=== PATIENT | female | born 2000 | race Caucasian/White ===

== ENCOUNTER 2025-01-22 17:58 | Emergency (ER) | payer OTHER, SELFPAY ==
[2025-01-22] VITALS (11 sets, daily range): BP systolic 93–118; BP diastolic 50–78; PULSE 75–87; RESP 10–20; TEMP 36.4; O2SAT 99–100
--- NOTE | ~2025-01-22 | US_ITS ---
EXAMINATION: US OB <= 14 weeks fetus DATE: 01/22/2025 20:17 INDICATION: Abdominal pain. Vaginal bleeding. TECHNIQUE: Real-time transabdominal obstetric ultrasound. FINDINGS: No prior studies for comparison. The uterus measures 10.9 x 7 x 9.1 cm. There is an intrauterine gestational sac, with pole identified. The crown rump length measures 1.98 cm, which correlates with a estimated gestational age of 8 weeks 4 days. heart tones are identified measuring 181 bpm. There is a large subchorionic hemorrhage. Ovaries within normal limits. IMPRESSION: 1. SL IUP with an EGA of 8 weeks, 4 days (EDC by current ultrasound of 08/30/2025). 2: Large subchorionic hemorrhage. Reviewed, dictated and finalized at location O. IMPRESSION: 1. SL IUP with an EGA of 8 weeks, 4 days (EDC by current ultrasound of 08/31/19). 2: Large subchorionic hemorrhage.
--- OUTSIDE RECORDS SUMMARY | 2025-01-22 18:00 | XMS_ITS | Encounter Summary ---
Author Organization [facility] Facility Care Team Providers Care Multiple Sclerosis Nurse Name Role Phone Gurjit Anderson MD Primary Care Provider [phone] Juan Dooley MD Unavailable [phone] Encounter Details Date Type Department Care Team (Latest Contact Info) Description 02/17/2024 Hospital Encounter Social History Tobacco Use Types Packs/Day Years Used Date Smoking Tobacco: Never Smokeless Tobacco: Never Alcohol Use Standard Drinks/Week Comments Not Currently 0 (1 standard drink = 0.6 oz pur e alcohol) AUDIT-C Answer Date Recorded Q1: How often do you have a drink containing alc ohol? Never 06/19/2021 Average Number of Drinks Not on file 022 Frequency of Binge Drinking Not on file 06/01 Personal Safety Answer Date Recorded Have you ever been in or are you currently in a harmful physical or emotional relationship or is someone making you feel afraid or unsafe? Denies 01/01/2025 Comments Unknown Sex and Gender Information Value Date Recorded Sex Assigned at Not on file Legal Sex Female 7:16 PM [employer] Gender Identity Not on file Sexual Orientation Not on file documented as of this encounter Plan of Treatment Not on file documented as of this encounter Visit Diagnoses Not on filedocumented in this encounter Care Teams Multiple Sclerosis Nurse Relationship Specialty Start Date End Date Gurjit Anderson MD [address] [place] [id number] PCP - General Family Medicine 08/21/23 Juan Dooley MD [address] [facility] [place] [id number] Cemetery Worker Obstetrics and Gynecology 08/21/23 documented as of this encounter
--- OUTSIDE RECORDS SUMMARY | 2025-01-22 18:00 | XMS_ITS | Clinical Summary ---
Author Organization [facility] Address [address] [place] [id number] Care Team Providers Care Utility Technician Name Role Phone Gurjit Anderson MD Primary Care Provider [phone] Allergies No known active allergies Medications oxyCODONE immediate release (ROXICODONE) 5 MG immediate release tabletIndication s:Acute Pain < 7 Day Supply Take 1 tablet (5 mg total) by mouth every 6 (six) hours as needed for Pain. Indications : Acute Pain < 7 Day Supply 10 tablet 02/18/2024 Active Active Problems Problem Noted Date Diagnosed Date Acute appendicitis 02/18/2024 Appendicitis 02/18/2024 Social History Tobacco Use Types Packs/Day Years Used Date Smoking Tobacco: Former Cigarettes Passive Smoke Exposure: Never Smokeless Tobacco: Never Tobacco Cessation:Counseling Given: No Alcohol Use Standard Drinks/Week Comments Not Currently 0 (1 standard drink = 0.6 oz pur e alcohol) B1300 Health Literacy Answer Date Recor ded How often do you need to hav e someone help you when you read instructions, pamphlets, or other written material from your doctor or pharmacy? Rarely 02/18/2024 [facility] Utilities Answer Date Recorded In the past 12 months has e [employer], [employer], or water [employer] threatened to shut off services in your home? No 02/18/2024 Humiliation, Afraid, Rape, and Kick questionnair e Answer Date Recorded Within the last year, have y ou been afraid of your partner or ex-partner? No 02/18/2024 Within the last year, have y ou been humiliated or emotionally abused in other ways by your partner or ex-partner? No Within the last year, have y ou been kicked, hit, slapped, or otherwise physically hurt by your partner or ex-partner? No 02/18/2024 Within the last year, have y ou been raped or forced to have any kind of sexual activity by your partner or ex-partner? No 02/18/2024 Social Connection and Isolat ion Panel [NHANES] Answer Date Recorded In a typical week, how many times do you talk on the phone with family, friends, or neighbors? More than three times a week 02/18/2024 How often do you get togethe r with friends or relatives? Once a week 02/18/2024 How often do you attend chur or congregation services? 1 to 4 times per year 02/18/2024 Do you belong to any clubs o r organizations such as moravian groups, unions, fraternal or athletic groups, or school groups? No 02/18/2024 How often do you attend meet ings of the clubs or organizations you belong to? 1 to 4 times per year 02/18/2024 Are you , , di vorced, , never , or living with a partner? Living with partner 02/18/2024 AUDIT-C Answer Date Recorded Q1: How often do you have a drink containing alc ohol? Monthly or less 02/18/2024 Q2: How many drinks containi ng alcohol do you have on a typical day when you are drinking? 1 or 2 02/18/2024 Q3: How often do you have si x or more drinks on one occasion? Never 02/18/2024 Overall Financial Resource Strain (CARDIA) Answe r Date Recorded How hard is it for you to pa y for the very basics like food, housing, medical care, and heating? Not very hard 02/18/2024 [facility] - Occupational Stress Questionnaire Answer Date Recorded Do you feel stress - tense, restless, nervous, or anxious, or unable to sleep at night because your mind is troubled all the time - these days? To some extent 02/18/2024 Exercise Vital Sign Answer Date Recorde d On average, how many days pe r week do you engage in moderate to strenuous exercise (like a brisk walk)? 7 days 02/18/2024 On average, how many minutes do you engage in exercise at this level? 60 min 02/18/2024 Hunger Vital Sign Answer Date Recorded Within the past 12 months, y ou worried that your food would run out before you got the money to buy more. Never true 02/18/20 24 Within the past 12 months, t he food you bought just didn't last and you didn't have money to get more. Never true 02/18/2024 PRAPARE - Transportation Answer Date Re corded In the past 12 months, has l ack of transportation kept you from medical appointments or from getting medications? No 01/30 In the past 12 months, has l ack of transportation kept you from meetings, work, or from getting things needed for daily living? No 02/18/2024 Housing Stability Vital Sign Answer Chacho e Recorded In the last 12 months, was t here a time when you were not able to pay the mortgage or rent on time? No 02/18/2024 In the past 12 months, how m any times have you moved where you were living? 3 02/18/2024 At any time in the past 12 m [facility], were you homeless or living in a [facility] (including now)? No 02/18/2024 Comments Unknown Sex and Gender Information Value Date Recorded Sex Assigned at Not on file Legal Sex Female 9:25 PM CDT Gender Identity Not on file Sexual Orientation Not on file Last Filed Vital Signs Vital Sign Reading Time Taken Comments Blood Pressure 106/64 02/18/2024 1:30 PM CDT Pulse 85 02/18/2024 1:30 PM CDT Temperature 36.2 C (97.2 F) 02/18/2024 10:40 AM CDT Respiratory Rate 16 02/18/2024 11:3 0 AM CDT Oxygen Saturation 100% 02/18/2024 1:30 PM CDT Inhaled Oxygen Concentration - - Weight 53.5 kg (117 lb 15.1 oz) 02/18/2024 1:00 AM CDT Height 170 cm (5' 6.93) 02/18/2024 1:00 AM CDT Body Mass Index 18.51 02/18/2024 1:00 AM CDT Plan of Treatment Health Maintenance Due Date Last Done Comments Cervical Cancer Screening Pap Smear (Age 21 to 29) Every 3 Years 2001 Cervical Cancer Screening 2001 Annual Physical 2004 Chlamydia Screening Females ages 16-24 2017 Meningococcal B Vaccine (1 of 2 - Standard) 2017 Hepatitis C 10/16/2019 COVID-19 Vaccine ( - 2023-25 season) 2024 DTaP, Tdap and Td Vaccines (8 - Td or Tdap) 06/08/2029 06/08/2019, 02/12/2013, 12/09/2005, Additional history exists Pneumococcal Vaccine: Pediatrics (0 to 5 Years) and At-Risk Patients (6 to 49 Years) Aged Out 2001 No longer eligible based on patient's age to complete this topic Hepatitis B Vaccines Completed 08/08/2002, 04/18/2002, 2001 HPV Vaccines Completed 06/01/2017, 02/12/2013 Meningococcal Vaccine Aged Out No jesse mendez eligible based on patient's age to complete this topic RSV Immunizations Under 20 Months Aged Out No longer eligible based on patient's age to complete this topic Insurance Advance Directives * Full Code (Latest Code Status on File) Date Activated Date Inactivated Comments 02/18/2024 2:30 AM 02/18/2024 6:15 PM Care Teams Utility Technician Relationship Specialty Start Date End Date Gurjit Anderson MD [address] [place] [id number] PCP - General FAMILY PRACTICE 02/18/24
--- OUTSIDE RECORDS SUMMARY | 2025-01-22 18:00 | XMS_ITS | Clinical Summary ---
Author Organization [facility] [address] Address [address] [place] [address] Phone Care Team Providers Care Environmental Studies Faculty Member Name Role Phone Gurjit Anderson MD Primary Care Provider [phone] Juan Dooley MD Unavailable [phone] Allergies No known active allergies Medications 28 mg iron- 800 mcg tablet TK 1 T PO ONCE D 8 10/24/2018 Active ferrous gluconate 324 mg (37.5 mg of elemental iron) tablet Take 324 mg by mouth daily Active Active Problems No known active problems Encounters Date Type Department Care Team Description 01/01/2025 9:19 PM CDT - 01/01/2025 9:49 PM CDT Emergency [facility] Emergency Department [address] [place] [id number] Threatened miscarriage in early (Primary Dx) Discharge Disposition: Discharge to home or self care from Last 3 Months Immunizations Immunization Administration Dates Next Due Influenza, Quadrivalent, Spl it, Preservative Free, Intramuscular 06/10/2019 Tdap 06/08/2019 Medical History Medical History Date Comments Chronic kidney disease kidney fa ilure at 15weeks previous Thyroid disease Autoimmune disease Social History Tobacco Use Types Packs/Day Years [...] on file 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 Gender Identity Not on file Sexual Orientation Not on file Obstetrics History Para Term AB IAB SAB Ectopic Multiple Livin g Live Births 2 1 1 1 1 Date Outcome GA Total Labor Labor//3rd Weight Sex Type Anes PTL Steffi A1 A5 Name Clin 020 Term 39w 1d Vag-S pont Epidur al N Livin g Juan Rome MD Complications:None Delivery Location:This [facility] ity Last Filed Vital Signs Vital Sign Reading Time Taken Comments Blood Pressure 117/62 01/01/2025 7:41 PM CDT Pulse 87 01/01/2025 7:41 PM CDT Temperature 37.7 C (99.8 F) 01/01/2025 3:42 PM CDT Respiratory Rate 12 01/01/2025 7:41 PM CDT Oxygen Saturation 100% 01/01/2025 7:41 PM CDT Inhaled Oxygen Concentration - - Weight 51.7 kg (114 lb) 01/01/2025 3:42 PM CDT Height 170.2 cm (5' 7) 05/07/2019 4:45 PM CYBER INTELLIGENCE ANALYST Body Mass Index - - Plan of Treatment Health Maintenance Due Date Last Done Comments Cervical Cancer Screening 2001 Chlamydia and Gonorrhea (GC/CT) Screening 2001 Depression Screening 2001 Hepatitis C Screening 2001 Meningococcal B Vaccine (1 of 2 - Standard) 2017 Regular Well Visit/Exam 18-64 10/16/2019 Influenza Vaccine (#1) 2024 0, 06/01/2017, 03/25/2014 DTaP/Tdap/Td Vaccine (8 - Td or Tdap) 06/08/2029 06/08/2019, 02/12/2013, 12/09/2005, Additional history exists Pneumococcal vaccine <65 Aged Out 2001 No longer eligible based on patient's age to complete this topic Hepatitis B Screening Completed 08/08/2002 , 04/18/2002, 2001 Varicella Vaccines Completed 02/16/2016, 02/09/2004 HPV Vaccines Completed 06/01/2017, 02/12/2013 Procedures Procedure Name Priority Date/Time Associated Diagnosis Comments URINE CULTURE STAT 01/01/2025 8:55 PM CDT URINALYSIS, MICROSCOPIC ONLY STAT 01/01/2025 8:22 PM CDT URINALYSIS AND REFLEX TO MICROSCOPIC AND CULTURE STAT 01/01/2025 8:22 PM CDT US OB UNDER 14 WEEKS ED 01/01/2025 6:12 PM CDT EGFR STAT 01/01/2025 3:49 PM CDT DIFFERENTIAL AUTO STAT 01/01/2025 3:4 9 PM CDT ABO/RH Routine 01/01/2025 3:49 PM CDT HCG, BLOOD, QUANTITATIVE STAT 01/01/2025 3:49 PM CDT CBC WITH AUTO DIFFERENTIAL STAT 01/01/2025 3:49 PM CDT COMPREHENSIVE METABOLIC PANEL STAT 01/01/2025 3:49 PM CDT from Last 3 Months Results * Urine culture Urine, bladder (01/01/2025 8:55 PM CDT) Report Final Report: Less than 100,000 colonies/mL (clinically insignificant growth based on current clinical standards) Comment:Testing performed by : [facility], [address], [place]., [address] Organism (CLINICALLY INSIGNIFICANT GROWTH LARRY CON[facility] (KIM) Urine, bladder 01/01/2025 8: 55 PM CDT 01/02/2025 12:30 AM CDT Narrative [facility] (KIM) - 01/03/2025 6:17 AM CDT Indications for Culture:-> patient Testing performed by [facility] ([phone]) us Heaven [facility] MICRO[facility]OLOG[facility] - GENERA L ORDERABLES Final Result [facility] (KIM) 1 [facility] [place] [address] * (ABNORMAL) Urinalysis reflex to microscopic and culture Urine (01/01/2025 8:22 PM CDT) Color, ur Straw Yellow Clarity, ur Turbid(A) Clear [facility] (KIM) Specific gravity, ur 1.001(L) 1.003 - 1.030 [facility] ([place]IM) pH, urine 7.5 [facility] (KIM) Comment: Interpretive Data U rine pH is affected by diet, medications, systemic acid-base disturbances, and renal tubular function. pH may affect urinary stone formation. For example, urine pH below 6.0 may help reduce the tendency for calcium phosphate stones and pH greater than 6.0 may reduce the tendency for uric acid stone formation. Source: [facility] [employer] Current Interpretive Data was last revised on 2017 Protein, ur ql Negative Negative [facility] (KIM) Glucose, ur ql Negative Negative [facility] ([place]) Ketones, ur Negative Negative [facility] (KIM) Bilirubin, ur Negative Negative [facility] ([place]) Blood, ur 3+(A) Negative [facility] ([place]) Urobilinogen, ur <2.0 <2.0 mg/dL [facility] ([place]) Nitrite, ur Negative Negative [facility] (KIM) Leukocyte esterase, ur Negative Negative [facility] ([place]IM) UA reflex comment Reflex to microscopic UA will be performed. [facility] ([place]IM) Urine 01/01/2025 8:22 PM CDT 01/01/2025 8:51 PM CDT Agustín [facility] MICRO[facility] - GENERAL ORDERABLES Final Result Performing Organization Address [facility] Co de Phone Number LARRY [facility] (KIM) 1 [facility] [place] [address] * (ABNORMAL) Urinalysis, microscopic only (01/01/2025 8:22 PM CDT) WBC, ur 0-5 0 - 5 /HPF RBC, ur 0-2 0 - 2 /HPF [facility] ([place]) Epithelial cells, squamous, ur 1-5 0 - 5 /HPF [facility] ([place]) Bacteria, ur 3+(A) [facility] ([place]) Culture Reflex Comment Reflex conditions for urine culture (WBC >10) not met. [facility] ([place]) Urine 01/01/2025 8:22 PM CDT 01/01/2025 8:51 PM CDT [facility] URINE ORDERA BLES Final Result Performing Organization Address [facility] de Phone Number LARRY [facility] ([place]) [address] [facility] [place] [address] * US Ob Under 14 Weeks (01/01/2025 6:12 PM CDT) Anatomical Region Laterality Modality Abdomen N/A Ultrasound 01/01/2025 6:35 PM CDT Narrative 01/01/2025 6:39 PM CDT EXAM DESCRIPTION: US OB UNDER 14 WEEKS REASON FOR STUDY: vaginal pain / bleeding . Beta-hC TECHNIQUE: Transabdominal and transvaginal images acquired of the pelvis. COMPARISON: None FINDINGS: Clinical gestational age: Uncertain Clinical estimated Due Date: Not applicable Intrauterine gestational sac: Suspected intrauterine gestational sac measuring 1.0 x 0.4 cm. Yolk sac: Not identified Subchorionic bleed: No Placenta: Not identified Mean sac diameter: 0.9 cm Chilcoot-Vinton-rump length: Not applicable heart rate: Not applicable Gestational age by this ultrasound: 5 weeks 5 days ELODIA by this ultrasound: 08/29/2025 Uterus: The uterus is anteverted , measuring cm. Right Ovary/Adnexa: The right ovary measures 1.9 x 3.4 x 2.2 cm. There is documentation of color Doppler flow in the right ovary. The right ovary appears unremarkable. No adnexal mass. Left Ovary/Adnexa: The left ovary measures 4.6 x 1.9 x 2.6 cm. There is documentation of color Doppler flow in the left ovary. The left ovary appears unremarkable. There is a left ovarian 2.2 x 1.6 cm corpus luteal cyst. Free Fluid: None. Other Findings: The cervix measures 2.3 cm in length. IMPRESSION: 1. Suspected intrauterine gestational sac, gestational age of 5 weeks 5 days by this ultrasound. No pole identified. 2. Left ovarian corpus luteal cyst. THIS IS AN ELECTRONICALLY VERIFIED FINAL REPORT 01/01/2025 6:39 PM - Electronically signed by Denny Choe M.D. KR: KR Report ID: [id number] Reading Location: [id number] Procedure Note Denny Choe MD - 01/01/2025 EXAM DESCRIPTION: US OB UNDER 14 WEEKS REASON FOR STUDY: vaginal pain / bleeding . Beta-hC TECHNIQUE: Transabdominal and transvaginal images acquired of thepelvis. COMPARISON: None FINDINGS: Clinical gestational age: Uncertain Clinical estimated Due Date: Not applicable Intrauterine gestational sac: Suspected intrauterine gestational sac measuring 1.0 x 0.4 cm. Yolk sac: Not identified Subchorionic bleed: No Placenta: Not identified Mean sac diameter: 0.9 cm [place]ilcoot-Vinton-rump length: Not applicable heart rate: Not applicable Gestational age by this ultrasound: 5 weeks 5 days ELODIA by this ultrasound: 08/29/2025 Uterus: The uterus is anteverted , measuring cm. Right Ovary/Adnexa: The right ovary measures 1.9 x 3.4 x 2.2 cm. Thereis documentation of color Doppler flow in the right ovary. The right ovary appears unremarkable. No adnexal mass. Left Ovary/Adnexa: The left ovary measures 4.6 x 1.9 x 2.6 cm. There is documentation of color Doppler flow in the left ovary. The left ovaryappears unremarkable. There is a left ovarian 2.2 x 1.6 cm corpus luteal cyst. Free Fluid: None. Other Findings: The cervix measures 2.3 cm in length. IMPRESSION: 1. Suspected intrauterine gestational sac, gestational age of 5 weeks 5days by this ultrasound. No pole identified. 2. Left ovarian corpus luteal cyst. THIS IS AN ELECTRONICALLY VERIFIED FINAL REPORT 01/01/2025 6:39 PM - Electronically signed by Denny Choe M.D. KR: KR Report ID: [id number] Reading Location: [id number] us Agustín [facility] OB US PROCED URES Final Result * eGFR (01/01/2025 3:49 PM CDT) eGFR >90 >=60 mL/min/1. 73 m2 Comment: Interpretive Data Reference Interval Normal >/= 90 mL/min/1.73m2 Mildly decreased* 60 - 89 mL/min/1.73m2 Mildly to moderately decreased 45 - 59 mL/min/1.73m2 Moderately to severely decreased 30 - 44 mL/min/1.73m2 Severely decreased 15 - 29 mL/min/1.73m2 Kidney Failure < 15 mL/min/1.73m2 *Relative to young adult level Estimated glomerular filtration rate is determined by the 2020 CKD-EPI equation recommended by the National Kidney Foundation (A Unifying Approach to GFR Estimation: Recommendations of the NKF-ASK Task Force on Reassessing the Inclusion of Race in Diagnosing Kidney Disease, JASN 202). The CKD-EPI equation should not be used for patients with unstable renal function and has not been validated in children and those over 70. Current interpretive data was last reviewed 2021. Blood 01/01/2025 3:49 PM CDT 01/01/2025 4:11 PM CDT us Agustín [facility] BLOOD ORDERA BLES Final Result LARRY CON[facility] ([place]) 1 [facility] Department [place] [address] * Differential, auto (01/01/2025 3:49 PM CDT) Neutrophil abs 4.62 1.50 - 6.50 K/cumm Imm gran abs 0.02 0.00 - 0.10 K/cumm [facility] ([place]) Lymphocyte abs 1.15 0.80 - 3.30 K/cumm [facility] ([place]) Monocyte abs 0.31 0.20 - 0.80 K/cumm [facility] ([place]) Eosinophil abs 0.01 0.00 - 0.50 K/cumm [facility] ([place]) Basophil abs 0.04 0.00 - 0.10 K/cumm [facility] ([place]) Neutrophil pct 75.1 % [facility] ([place]) Comment: Interpretive Data Percent cell count reference ranges are not reported, since discordance with absolute values may lead to misinterpretation of CBC data. Current Interpretive Data was last revised on 2017. Imm gran pct 0.3 % [facility] ([place]) Comment: Interpretive Data Percent cell count reference ranges are not reported, since discordance with absolute values may lead to misinterpretation of CBC data. Current Interpretive Data was last revised on 2017. Lymphocyte pct 18.7 % [facility] ([place]) Comment: Interpretive Data Percent cell count reference ranges are not reported, since discordance with absolute values may lead to misinterpretation of CBC data. Current Interpretive Data was last revised on 2017. Monocyte pct 5.0 % [facility] ([place]) Comment: Interpretive Data Percent cell count reference ranges are not reported, since discordance with absolute values may lead to misinterpretation of CBC data. Current Interpretive Data was last revised on 2017. Eosinophil pct 0.2 % [facility] ([place]) Comment: Interpretive Data Percent cell count reference ranges are not reported, since discordance with absolute values may lead to misinterpretation of CBC data. Current Interpretive Data was last revised on 2017. Basophil pct 0.7 % [facility] ([place]IM) Comment: Interpretive Data Percent cell count reference ranges are not reported, since discordance with absolute values may lead to misinterpretation of CBC data. Current Interpretive Data was last revised on 2017. Blood 01/01/2025 3:49 PM CDT 01/01/2025 4:11 PM CDT Agustín [facility] BLOOD ORDERA BLES Final Result [facility] ([place]IM) [address] [facility] [place] [address] * CBC with auto differential (01/01/2025 3:49 PM CDT) WBC 6.15 3.80 - 9.90 K/cumm Hgb 12.4 11.9 - 15.5 g/dL [facility] ([place]) Hct 36.0 35.6 - 45.5 % [facility] ([place]) Plt 211 150 - 400 K/cumm [facility] ([place]) MPV 9.5 9.1 - 12.3 fL [facility] ([place]) RBC 3.99 3.90 - 5.20 M/cumm [facility] ([place]) MCV 90.2 81.3 - 96.4 fL [facility] ([place]) MCH 31.1 27.1 - 33.3 pg [facility] ([place]) MCHC 34.4 32.3 - 35.7 g/dL [facility] ([place]) RDW CV 11.7 11.1 - 14.9 % [facility] ([place]) RDW SD 38.5 35.7 - 48.1 fL [facility] ([place]) NRBC abs 0.00 0.00 - 0.01 K/cumm [facility] ([place]) Blood 01/01/2025 3:49 PM CDT 01/01/2025 4:11 PM CDT Agustín [facility] BLOOD ORDERA BLES Final Result LARRY [facility] (KIM) [address] [facility] [place] [address] * ABO/Rh (01/01/2025 3:49 PM CDT) ABO/Rh O Positive Blood 01/01/2025 3:49 PM CDT 01/01/2025 4:10 PM CDT Augstín [facility] BLOOD BANK T EST ORDERABLES Final Result Performing Organization Address [facility] Co de Phone Number LARRY [facility] ([place]) 1 [facility] [place] [address] * (ABNORMAL) hCG, blood, quantitative (01/01/2025 3:49 PM CDT) Pathologist [facility] hCG, quant 4,831.0(H ) 0.0 - 5.0 IUnits/L [facility] (KIM) Comment: Interpretive Data Male: < 5 IU/L Non- premenopausal Female: <5 IU/L The Екатерина hCG Beta Quant assay procedure was used. Results from different manufacturers or methods may not be comparable. Serial testing should be performed using the same method. Interpretive Data was last revised on 2023 Blood 01/01/2025 3:49 PM CDT 01/01/2025 4:10 PM CDT Agustín [facility] BLOOD ORDERA BLES Final Result Performing Organization Address City/[facility]/ZIP Co de Phone Number LARRY CONDE (KIM) [address] [facility] [place] [address] * Comprehensive metabolic panel (01/01/2025 3:49 PM CDT) Sodium 137 135 - 145 mmol/L [facility] ([place]) Potassium, pl 3.3 3.3 - 4.9 mmol/L [facility] ([place]) Chloride 103 97 - 110 mmol/L [facility] ([place]) CO2 22 22 - 32 mmol/L [facility] ([place]) Anion gap 12 2 - 15 mmol/L [facility] ([place]) BUN 7 6 - 25 mg/dL [facility] ([place]) Creatinine 0.60 0.60 - 1.10 mg/dL [facility] ([place]) Glucose 83 70 - 199 mg/dL [facility] ([place]) Comment: Interpretive Data Fasting glucose >/= 126 mg/dl is diagnostic for diabetes. Fasting is defined as no caloric intake for at least 8 hours. Fasting glucose between 100 mg/dl to 125 mg/dl is diagnostic of prediabetes. In a patient with classic symptoms of hyperglycemia or hyperglycemic crisis, a random glucose >/= 200 mg/dl is diagnostic for diabetes. In the absence of unequivocal hyperglycemia, results should be confirmed by repeat testing. The classification and Diagnosis of Diabetes Diabetes Care 202; 46: S19-S40. Current interpretive data was last revised 2022. Calcium 9.4 8.5 - 10.3 mg/dL [facility] ([place]) Bilirubin, total 0.3 0.1 - 1.2 mg/dL [facility] ([place]) Protein, pl 7.0 6.5 - 8.5 g/dL [facility] ([place]) Albumin 4.6 3.5 - 5.0 g/dL [facility] ([place]) Alk phos 44 40 - 130 Units/L [facility] ([place]) ALT 8 7 - 45 Units/L [facility] ([place]) AST 18 10 - 45 Units/L [facility] ([place]) Blood 01/01/2025 3:49 PM CDT 01/01/2025 4:11 PM CDT us Agustín [facility] BLOOD ORDERA BLES Final Result [facility] ([place]) 1 [facility] [place] [address] from Last 3 Months Insurance [facility] Advance Directives For more information, please contact: [phone] * Full Code (Latest Code Status on File) Date Activated Date Inactivated Comments 06/08/2019 3:47 PM 06/10/2019 5:13 PM * Full Code Date Activated Date Inactivated Comments 06/07/2019 6:09 PM 06/08/2019 3:47 PM Full CPR in ca se of cardiopulmonary arrest Care Teams Environmental Studies Faculty Member Relationship Specialty Start Date End Date Gurjit Anderson MD [address] [place] [address] PCP - General Family Medicine 08/21/23 Juan Dooley MD [address] [place] [address] Coordinate Measuring Machine Operator Obstetrics and Gynecology 08/21/23
--- OUTSIDE RECORDS SUMMARY | 2025-01-22 18:00 | XMS_ITS | Clinical Summary ---
Author Organization [facility] Address [address] [place] [address] Phone Care Team Providers Care Sausage Tier Name Role Phone Shahnaz Robbins MD Primary Care Provider Allergies Active Allergy Reactions Criticality Noted Date Comments Amoxicillin Vomiting 10/28/2020 Medications Acetaminophen (TYLENOL PO) Take by mouth. Active Ondansetron HCl (ZOFRAN PO) Take by mouth. Active metoclopramide (REGLAN) 10 MG Tablet Take 10 mg by mouth 3 times daily (before meals). 01/20/2021 Active famotidine (PEPCID) 20 MG Tablet Take 1 Tablet by mouth 2 times daily. 60 Tablet 01/23/2021 Active prochlorperazin e (COMPAZINE) 5 MG Tablet Take 1-2 Tablets by mouth every 6 hours as needed for Nausea - 1st line. 50 Tablet 01/23/2021 Active Immunizations Immunization Administration Dates Next Due DTAP VACCINE 12/09/2005, 4,08/08/2002,04/18,2001 HEP B/HIB Combined Vaccine 08/08/2002,04/18/2002 ,2001 Hib Vaccine,unspecified Formulation 02/09/2004,0 01/09/2003 Human Papillomavirus (HPV) 9 -valent Vaccine 06/01/2017 Human Papillomavirus Vaccine (HPV), quadrivalent 02/12/2013 Inactivated Polio Vaccine 12/09/2005,03/2003,04/18/2002,12/26 Influenza Vaccine 03/25/2014 Influenza Vaccine, Quadrivalent, PF 06/01/2017 MMR Vaccine 12/09/2005,01/09/2003 Pneumococcal Vaccine Peds - 7 Valent 2001 TDAP Vaccine 06/08/2019,02/12/2013 Varicella Vaccine Live 02/16/2016,02/09/2004 Family History Medical History Relation Name Comments Breast Cancer Maternal Grandmother Diabetes Maternal Grandmother Heart Disease Maternal Grandmother Lupus Mother Breast Cancer Paternal Grandmother Lupus Sister Relation Name Status Comments Maternal Grandmother Mother Paternal Grandmother Sister Social History Tobacco Use Types Packs/Day Years Used Date Smoking Tobacco: Former Cigarettes Q uit: 2019 Smokeless Tobacco: Never Alcohol Use Standard Drinks/Week Comments Never 0 (1 standard drink = 0.6 oz pur e alcohol) Sexually Active Control Partners Comments Not Currently Injection Comments No Sex and Gender Information Value Date Recorded Sex Assigned at Not on file Legal Sex Female 9:07 PM CDT Gender Identity Not on file Sexual Orientation Not on file Last Filed Vital Signs Vital Sign Reading Time Taken Comments Blood Pressure 126/82 11/07/2021 2:27 AM CDT Pulse 90 11/07/2021 2:27 AM CDT Temperature 36.8 C (98.3 F) 11/07/2021 1:23 AM CDT Respiratory Rate 18 11/07/2021 2:27 AM CDT Oxygen Saturation 99% 11/07/2021 2:27 AM CDT Inhaled Oxygen Concentration - - Weight 55.8 kg (123 lb 0.3 oz) 11/07/2021 1:23 A M CDT Height 170.2 cm (5' 7) 11/07/2021 1:23 AM CDT Body Mass Index 19.27 11/07/2021 1:23 AM CDT Plan of Treatment Health Maintenance Due Date Last Done Comments Hepatitis C Virus (HCV) Screening 2001 Meningococcal B Immunization (1 of 2 - Standard) 2017 Influenza Immunization (#1) 12/30/202406/01, 06/01/2017, 03/25/2014 SARS-COV-2 Immunization ( season) 2024 DTaP/Tdap/Td Immunization (8 - Td or Tdap) 06/08/2029 06/08/2019, 02/12/2013, 12/09/2005, Additional history exists Respiratory Syncytial Virus (RSV) Immunization (Adult) (1 - 1-dose 75+ series) 2076 Pneumococcal Immunization Combined Aged Out 2001 No longer eligible based on patient's age to complete this topic Hepatitis B Immunization Completed 003, 04/18/2002, 2001 Human Papillomavirus (HPV) Immunization Completed 06/01/2017, 02/12/2013 Meningococcal Immunization (ACWY) Aged Out No longer eligible based on patient's age to complete this topic Rotavirus Immunization Aged Out No lo nger eligible based on patient's age to complete this topic Insurance MEDICAID [place] Care Teams Sausage Tier Relationship Specialty Start Date End Date Shahnaz Robbins MD PCP - General Family Medicine 10/22/20
--- OUTSIDE RECORDS SUMMARY | 2025-01-22 18:01 | XMS_ITS | Clinical Summary ---
Author Organization [facility] [employer] Address [address] [address] Care Team Providers Care Truck Trailer Final Inspector Name Role Phone Shahnaz Robbins MD Primary Care Provider [phone] Source Comments [facility] [employer],non-owned Affiliates and Associated Physician Practices is amultiple site organization consisting of ambulatory clinics and hospital sitesin [place], [place], [place] and [place]. This disclosure is being madepursuant to the Care Everywhere program and may not contain all information available regarding this patient. Last updated 18.[facility] [employer] Allergies Active Allergy Reactions Criticality Noted Date Comments Amoxicillin Nausea and/or Vomiting Medium 12/09/2018 Medications * Be aware that medications may not be up to date on this document. Alwaysverify current medications with the patient. Vit-Fe Fumarate-FA ( VITAMIN) 28-0.8 MG tablet Take 1 tablet by mouth once daily Active magnesium oxide (MAG-OX) 400 MG tabletIndicati ons:Prevention of Headaches Take 1 (one) tablet by mouth once daily Reasons: Headache Prophylaxis 90 tablet 11 1 Active Additional Information Patient not taking.Reported on 08/02/2021 omeprazole (PRILOSEC) 20 MG capsule Take 1 (one) capsule by mouth once daily 30 capsule 3 2 Active Additional Information Patient not taking.Reported on 08/02/2021 ferrous gluconate 324 (38 Fe) MG tabletIndicati ons:Iron Deficiency Take 1 (one) tablet by mouth daily with breakfast Reasons: Iron Deficiency 30 tablet 1 2 Active docusate sodium (COLACE) 100 MG capsule Take 1 (one) capsule by mouth 2 times daily as needed for Constipation 45 capsule 2 Active ibuprofen (MOTRIN) 600 MG tablet Take 1 (one) tablet by mouth every 6 hours as needed for Pain 45 tablet 2 Active oxyCODONE, immediate release, (ROXICODONE) 5 MG tablet Take 1 (one) tablet by mouth every 4 hours as needed 12 tablet 2 Active Additional Information Patient not taking.Reported on 08/02/2021 acetaminophen (TYLENOL) 500 MG tablet Take 1,000 mg by mouth every 4 hours as needed for Fever or Pain Maximum allowable Acetaminophen amount = 4 Grams (4000 mg) / 24 hours. Active Active Problems Patient Care Coordination No te Formatting of this note migh t be different from the original. [employer] form completed. Diapers given. 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 We discussed that Gypsy's usually results in HypOthyroidism. In the 1TM the TSH was low but the fT4 was normal--this is a typical pattern for 1TM thyroid function. Recommendations 1. Check repeat thyroid studies & thyroid stimulating antibodies 1. Reassess thyroid function every trimester 2. Will determine testing depending on final thyroid dysfunction pattern Anemia affecting 03/20/2019 Overview (07/15/2021): Hgb 9.1 Taking PO iron Assessment & Plan (03/17/2021 3:31 PM PECAN HULLER): Started the with an H&H lower than expected. Has a history of iron deficiency anemia. Not currently taking iron due to nausea from . Assessment & Plan (06/05/2019 1:16 PM PECAN HULLER): Urged continued compliance with ferrous sulfate supplementation twice daily, optimally with orange juice. Discussed she may also need supplementation . She completed a total of 600mg of Venofer infusions at [facility]; she declined my offer to complete one more prior to delivery this Monday. Again, reviewed risk for blood transfusion with delivery. Assessment & Plan (05/29/2019 2:57 PM PECAN HULLER): 03/06/19: H/H/P: 10.; inconsistent with ferrous sulfate supplementation 05/09/19: H/H/P: 8.9/.9, MCV: 81.3, MCHC: 31.9 Iron: 21 (L) UIBC: 422 (H) TIBC: 443 (WNL, range: 120-480) Saturation %: 5%, (L) 05/28/19: H/H/P: Plan: Urged continued compliance with ferrous sulfate supplementation twice daily, optimally with orange juice. Has begun Venofer infusions at [facility], received first one, 200mg. Dr. Rae prefers for patient to get 400mg at her next infusion as originally recommended, and order placed today for Monday's infusion. Patient calculated to receive approximately 400mg two times; will likely need one more 200mg infusion following this week's infusion. Reviewed importance of compliance with these infusions, and timing for stores to be improved. Again, discussed if she has spontaneous labor prior to infusions or shortly after, remains at risk for blood transfusion with delivery. Assessment & Plan (05/15/2019 11:38 AM PECAN HULLER): 03/06/19: H/H/P: 10.; inconsistent with ferrous sulfate supplementation 05/09/19: H/H/P: 8.9/27.9/212, MCV: 81.3, MCHC: 31.9 Iron: 21 (L) UIBC: 422 (H) TIBC: 443 (WNL, range: 120-480) Saturation %: 5%, (L) Plan: Urged compliance with ferrous sulfate supplementation twice daily. Reviewed dietary products to avoid with iron supplement. Venofer Iron infusions ordered and faxed to the infusion center at [facility]. Patient calculated to receive approximately 400mg two times, reviewed with Dr. Rae. Reviewed importance of compliance with these infusions, and timing for stores to be improved. Reviewed if she has spontaneous labor prior to infusions or shortly after, remains at risk for blood transfusion with delivery. Assessment & Plan (04/10/2019 11:44 AM PECAN HULLER): 03/06: H/H/P: 10.; compliant with ferrous sulfate supplementation Plan: Inconsistent with ferrous sulfate supplementation. Sent with requisition to check CBC, iron studies, instructed to do so in 2 weeks. Encouraged to take iron with Vitamin C again. Reviewed possibility of iron infusions if counts are worsening on next assessment. Assessment & Plan (03/20/2019 10:52 AM PECAN HULLER): 03/06: H/H/P: 10.; compliant with ferrous sulfate supplementation Plan: Continue supplementation Encouraged to take with Vitamin C or orange juice for increased absorption Reviewed increasing water and fiber in diet to avoid constipation. Supervision of high-risk of lucy sarkar 03/06/2019 Overview (07/15/2021): summary: Labs 01/06/21& 02/08/21 O+/I/-/-, HIV NR/ HCV NR AB screen: neg CBC: 12.6 / 36.3 / 243 AST:15 / ALT:13 / Uric acid: 2.8 CT, NG, Trich: Negative CLIF: positive: Titer= 1:160 (02/08/21) PENTA- Negative CF screen: Negative Baseline 24 hr Urine TP: 133 (03/10/21) UA Creat CL: 81.9, blood creatinine 0.6 CLIF positive/? Lupus--diagnosed by PCP 9 Overview (07/15/2021): had CLIF tested due to her mother having lupus 2020: CLIF: 1:80-- dense, finely speckled APLAS and lupus screen from 03/06/19: Cardiolipin AB IgM: <12 and IgG: <14 Beta 2 cardiolipin AB IgM, IgG, IgA: all <9 Double stranded DNA: <1 SS-A and SS-B: negative C3, C4 normal 2020: CLIF with new OB labs 1:160; pattern is nuclear, dense, speckled Assessment & Plan (03/17/2021 3:30 PM PECAN HULLER): Has not yet seen a Bin Packer. Was diagnosed with lupus by PCP. Recommendations: 1. Requesting records to confirm diagnosis of lupus 2. Baseline C3, C4, SSA/SSB 3. Please forward a copy of the 24 hr urine results performed 4. Aspirin for preeclampsia risk reduction 5. Will determine testing depending on final diagnosis Assessment & Plan (05/29/2019 2:49 PM PECAN HULLER): had CLIF tested due to her mother having lupus CLIF: 1:80-- dense, finely speckled APLAS and lupus screen from 03/06/19: Cardiolipin AB IgM: <12 and IgG: <14 Beta 2 cardiolipin AB IgM, IgG, IgA: all <9 Double stranded DNA: <1 SS-A and SS-B: negative Again, Consider rheumatology referral after delivery or onset of new/worsening symptomatolgy. Assessment & Plan (05/15/2019 11:44 AM PECAN HULLER): had CLIF tested due to her mother having lupus CLIF: 1:80-- dense, finely speckled APLAS and lupus screen from 03/06/19: Cardiolipin AB IgM: <12 and IgG: <14 Beta 2 cardiolipin AB IgM, IgG, IgA: all <9 Double stranded DNA: <1 SS-A and SS-B: negative Again, Consider rheumatology referral after delivery or onset of new/worsening symptomatolgy. Assessment & Plan (03/20/2019 10:59 AM PECAN HULLER): CLIF: 1: 80, dense, finely speckled APLAS and lupus screen: Cardiolipin AB IgM: <12 and IgG: <14 Beta 2 cardiolipin AB IgM, IgG, IgA: all <9 Double stranded DNA: <1 SS-A and SS-B: negative Plan: Blood pressure today normotensive and without proteinuria Reports improved joint pain, denies new rashes, significant fatigue Consider rheumatology referral after delivery Reviewed that labs are not indicative today of Lupus, but should be repeated with new symptomatolgy that could warrant re-assessment of Lupus Assessment & Plan (03/06/2019 10:59 AM PECAN HULLER): had CLIF tested due to her mother having lupus Reports mild, diffuse joint pain of bilateral hands and wrists at times CLIF: 1:80-- dense, finely speckled Blood pressure normotensive today without proteinuria Plan: following tests ordered and completed yesterday: double stranded DNA, beta two glycoprotein IgG/IgM, anticardiolipin IgG/IgM, SSA/SSB Return in two weeks to review results, determine plan of care, and if rheumatology referral is indicated Resolved Problems Problem Noted Date Diagnosed Date Resolved Date Threatened premature labor in third trimester 07/16/1907/22/2021 Bilobed placenta 07/15/2021 07/22/2021 Placenta previa without hemo rrhage, antepartum 03/17/2021 07/22/2021 Overview (07/15/2021): anterior-posterior bilobed complete previa with velamentous cord insertion between lobes repeat US today, if vessels plan for inpatient admission Did not received ANCS when inpatient for tPTL at 32 weeks. Plan to give ANCS today and second tomorrow with RN visit unless she goes inpatient then plan to be given inpatient No VB Ctx at baseline pCS scheduled for 07/20 at 10:30am 36w2d Assessment & Plan (03/17/2021 5:40 PM PECAN HULLER): We discussed the diagnosis and the recommendation for serial ultrasound reevaluation until resolution. I discussed that if this does not resolve then delivery would be recommended. Lupus anticoagulant affectin g in second trimester, antepartum 03/16/2021 03/17/2021 Absolute anemia 05/31/2019 03/16/2021 Cellulitis of right ring finger 05/15/2019 03/15/2021 Overview (05/15/2019): Resulted from biting of nails; likely needs incision and drainage, recommended urgent care or ED visit today, 05/15/19. Discouraged attempting to eliot on her own, she verbalized understanding. Assessment & Plan (05/15/2019 11:13 AM PECAN HULLER): Resulted from biting of nails; likely needs incision and drainage, recommended urgent care or ED visit today, 05/15/19. Discouraged attempting to eliot on her own, she verbalized understanding. Marginal insertion of umbili mera cord affecting management of mother 03/20/2019 Poor growth, affecting management of mother, antepartum condition or complication 03/06/2019 03/15/2021 Overview (04/10/2019): Datinw5d ultrasound, confirmed with report, uncertain LMP Marginal cord insertion noted TORCH screening 03/06: Rubella Immune CMV: IgM and IgG: negative Toxoplasmosis IgM and IgG: negative RPR: NR Previously negative HSV 1&2 IgG negative Assessment & Plan (05/29/2019 2:59 PM PECAN HULLER): Preliminary ultrasound: Improved growth: EFW: 22%, AC 8%, umbilical and MCA dopplers normal Reassuring testing today Marginal cord insertion Formal report to follow Plan: Weekly 10 point BPP; weekly dopplers. May need increased surveillance depending on growth or doppler pattern. This will likely be her final growth evaluation today. Delivery initiation at 39 weeks, unless changes in status identified prior to that time with testing/doppler studies. Instructed on twice daily kick counts. Appropriate weight gain again noted today. Assessment & Plan (05/15/2019 11:49 AM PECAN HULLER): Preliminary ultrasound: EFW: 10%, AC 2%, umbilical dopplers normal Reassuring testing today Marginal cord insertion Formal report to follow TORCH screening 03/06: Rubella Immune CMV: IgM and IgG: negative Toxoplasmosis IgM and IgG: negative RPR: NR Previously negative HSV 1&2 IgG negative Plan: Weekly 10 point BPP; weekly dopplers. May need increased surveillance depending on growth or doppler pattern. Repeat growth in 2-3 weeks. Delivery initiation at 39 weeks, unless changes in status identified prior to that time with testing/doppler studies/growth. Instructed on twice daily kick counts. Continued efforts in healthy calories and protein intake. Appropriate weight gain again noted today. Assessment & Plan (04/10/2019 12:06 PM PECAN HULLER): Preliminary ultrasound: EFW: 10%, AC 6%, umbilical dopplers normal Reassuring testing today Marginal cord insertion Formal report to follow TORCH screening 03/06: Rubella Immune CMV: IgM and IgG: negative Toxoplasmosis IgM and IgG: negative RPR: NR Previously negative HSV 1&2 IgG negative Plan: Weekly 10 point BPP; weekly dopplers May need increased surveillance depending on growth pattern Instructed on twice daily kick counts Continued efforts in healthy calories and protein intake Appropriate weight noted today; TW lbs Assessment & Plan (03/20/2019 3:52 PM PECAN HULLER): 03/20 preliminary ultrasound: EFW: 7%, AC 5%, umbilical dopplers normal Reassuring testing Marginal cord insertion noted Formal report to follow TORCH screening 03/06: Rubella Immune CMV: IgM and IgG: negative Toxoplasmosis IgM and IgG: negative RPR: NR Previously negative HSV 1&2 IgG negative Plan: Weekly 8 point BPP until 32 weeks, add NST; weekly dopplers Depending on growth pattern, may need increased surveillance Instructed on twice daily kick counts Continued efforts in healthy calories and good protein intake Assessment & Plan (03/06/2019 11:16 AM PECAN HULLER): Datinw5d ultrasound, confirmed with report, uncertain LMP 03/06 ultrasound: EFW: 8%, AC 7%, umbilical dopplers normal Plan: Sent with TORCH panel orders: CMV IgM and IgG, Toxoplasmosis IgM and IgG, Syphyllis cascade, Rubella PN record shows negative HSV 1 and 2 IgG, 01/24 Recommended increasing her protein in her diet, reviewed dietary sources for this and how to read food labels Encouraged ongoing avoidance of E Cigarette and tobacco products Repeat growth ultrasound in 2 weeks and doppler studies kick counts twice daily Pyelonephritis affecting 03/06/2019 03/16/2021 Overview (03/06/2019): Treated inpatient at [facility] Not currently taking prophylaxis as recommended Intermittent low back pain present, without fever, N/V, dysuria, urgency Assessment & Plan (05/29/2019 3:01 PM PECAN HULLER): Treated inpatient at [facility]. Never took prophylaxis as recommended. Asymptomatic today. Treated with IV ceftriaxone yesterday at ED, with likely contaminated U/A Urine culture is pending; preliminary culture shows no growth. Oral antibiotics not indicated, patient encouraged to follow up with hospital for final urine culture results. Assessment & Plan (05/15/2019 11:29 AM PECAN HULLER): Treated inpatient at [facility]. Never took prophylaxis as recommended. Asymptomatic today. Assessment & Plan (04/10/2019 12:01 PM PECAN HULLER): Treated inpatient, and had subsequent UTI treated in early March. Plan: Patient continues to be asymptomatic; she is non-compliant with antibiotic prophylaxis, and is honest stating she likely will not be. Strict precautions given for any symptoms to be seen right away by primary Paper Bag Making Machinist or OB triage. Reviewed that during symptoms are not as obvious. She verbalized understanding. Assessment & Plan (03/27/2019 1:44 PM PECAN HULLER): Urine cx negative after recurrent infection, Macrobid prophylaxis sent to pharmacy 03/27 Assessment & Plan (03/20/2019 10:51 AM PECAN HULLER): Treated for UTI with primary OB, patient states she finished antibiotics at least 1 week ago. Asymptomatic today. Plan: Sent with repeat urine culture orders today. Begin Macrobid prophylaxis immediately following negative urine culture, 100mg daily. Assessment & Plan (03/06/2019 11:00 AM PECAN HULLER): Treated inpatient at [facility] Not currently taking prophylaxis as recommended Intermittent low back pain present, without fever, N/V, dysuria, urgency Plan: Sent with order for repeat urine culture, if negative, will re-start prophylaxis Intrauterine in teenager 03/06/2019 07/22/2021 Overview (07/15/2021): SW PP Chlamydia trachomatis infection in 9 03/16/2021 Overview (03/06/2019): Reports both she and partner treated, need test of cure Pyelonephritis, acute 12/08/20182018 Immunizations Immunization Administration Dates Next Due DTaP VACCINE IM (6wk-6yrs) 12/09/2005,,08/08/2002,2001,2001 FLU VACCINE TRI IIV3 SPLIT P F IM (FLUVIRIN) 03/25/2014 HIB Hep B 08/08/2002,04/18/2002,2001 HIB VACCINE 02/09/2004,01/09/2003 Human Papilloma Virus Nineva lent Vaccine 06/01/2017 Human Papilloma Virus Bao valent Vaccine 02/12/2013 INFLUENZA VACCINE, QUADR. (F LUZONE; FLULAVAL; FLUARIX; AFLURIA QUADRIVALENT; 6MO+), 0.5 ML (IIV4) 06/10/2019,06/01/2017 MMR 07/20/2021(),12/09/2005,01/10/20 03 PNEUMOCOCCAL PCV7 CONJ, PEDS 2001 POLIO IPV 12/09/2005, 3,04/18/2002,2001 TDAP (7yrs+) 06/08/2019,02/12/2013 VARICELLA 02/16/2016,02/09/2004 Family History Medical History Relation Name Comments CAD (Coronary Artery Disease) Maternal Grandfather Leukemia Maternal Grandfather CAD (Coronary Artery Disease) Maternal Grandmother DVT - Deep Vein Thrombosis Maternal Grandmother Diabetes - Type 2 Maternal Grandmother Hypertension Maternal Grandmother Leukemia Maternal Grandmother Thyroid Disease Maternal Grandmother Goit er Autoimmune Disease Mother Depression Mother Lupus Mother Other Mother Fibromyalgia Thyroid Disease Mother Gypsy Depression Sister 1 Other Sister 1 Relation Name Status Comments Brother 1 Alive step brother Brother 2 Alive Brother 3 Alive Brother 4 Alive Father Alive Maternal Grandfather Alive Maternal Grandmother Mother anemia, uterine abnormalities resulting in hysterectomy Paternal Grandfather Alive Paternal Grandmother Alive Sister 1 Alive anemia Sister 2 Alive Social History Tobacco Use Types Packs/Day Years Used Date Smoking Tobacco: Former Cigarettes Smokeless Tobacco: Former Alcohol Use Standard Drinks/Week Comments Not Currently 0 (1 standard drink = 0.6 oz pur e alcohol) AUDIT-C Answer Date Recorded Frequency of Alcohol Consumption Never 12/09/2018 Average Number of Drinks Not on file 019 Frequency of Binge Drinking Not on file 11/29 [place] Depression Scale Answer Date Recorded RETIRED: Total Score 0 08/02/2021 Last EPDS Self Harm Result Not on file 08/02 Comments No Sex and Gender Information Value Date Recorded Sex Assigned at Not on file Legal Sex Female 9:32 PM CDT Gender Identity Not on file Sexual Orientation Not on file Last Filed Vital Signs Vital Sign Reading Time Taken Comments Blood Pressure 114/78 08/02/2021 10:35 AM CDT Pulse 76 08/02/2021 10:35 AM CDT Temperature 36.3 C (97.4 F) 07/22/2021 8:28 AM CDT Respiratory Rate 16 07/22/2021 8:28 AM CDT Oxygen Saturation 100% 07/22/2021 8:28 AM CDT Inhaled Oxygen Concentration - - Weight 59.9 kg (132 lb) 08/02/2021 10:30 AM CDT Height 170.2 cm (5' 7) 06/24/2021 9:59 PM PECAN HULLER Body Mass Index 20.67 06/24/2021 9:59 PM PECAN HULLER Plan of Treatment Health Maintenance Due Date Last Done Comments MENINGOCOCCAL (Group B) VACCINE SHARED DECISION-MAKING (1 of 2 - Standard) 2017 HEPATITIS C SCREENING 10/11/2019 CHLAMYDIA/GONORRHEA SCREENING 06/24/2022 06/24/2021, 12/17/2018 DEPRESSION SCREENING 05/01/2024 COVID-19 VACCINE ( - season) 2024 INFLUENZA VACCINE (#1) 2024 , 06/01/2017, 03/25/2014 DTAP/TDAP/TD VACCINES (8 - Td or Tdap) 06/08/2029 06/08/2019, 02/12/2013, 12/09/2005, Additional history exists ZOSTER VACCINE (1 of 2) 10/16/2051 PNEUMOCOCCAL VACCINE Aged Out 2001 No long er eligible based on patient's age to complete this topic HEPATITIS B VACCINE Completed 08/08/2002, 04/18/2002, 2001 HIB VACCINE Completed 02/09/2004, 12/30, 08/08/2002, Additional history exists HPV VACCINE Completed 06/01/2017, 02/12/2013 HIV SCREENING Completed 07/01/2021, 12/09/2018 MENINGOCOCCAL GROUPS A/C/Y/W VACCINE Aged Out No longer eligible based on patient's age to complete this topic Procedures Procedure Name Priority Date/Time Associated Diagnosis Comments HIV-1 HIV-2 ANTIBODY + HIV P24 AG PANEL Routine 07/01/2021 12:43 PM PECAN HULLER Antiphospholipid antibody positive Gypsy's thyroiditis CHLAMYDIA + GC AMPLIFIED PROBE Routine 06/24/2021 5:04 AM PECAN HULLER Supervision of high-risk of young multigravida from Last 3 Months or Most Recently Relevant to Health Maintenance Results * HIV-1 HIV-2 ANTIBODY + HIV P24 AG PANEL (07/01/2021 12:43 PM PECAN HULLER) Pathologist [facility] HIV1/2 Ab + P24 Ag Non Reactive Non Reactive 07/01/2021 1:36 PM PECAN HULLER [facility] Blood BLOOD SPECIMEN / Unknown Venipuncture / Unknown 07/01/2021 12:43 PM PECAN HULLER 07/01/2021 12:52 PM PECAN HULLER Narrative [facility] - 07/01/2021 1:36 PM PECAN HULLER No Laboratory evidence of HIV infection. us Humera Licea MD LAB - CHEMISTRY ORDERA BLES Final Result [facility] [address] [place] [address] * CHLAMYDIA + GC AMPLIFIED PROBE (STL) (06/24/2021 5:04 AM PECAN HULLER) Chlamydia Amplified Probe Negative Negative 06/24/2021 6:03 PM PECAN HULLER [facility] GC Amplified Probe Negative Negative 06/24/2021 6:03 PM PECAN HULLER [facility] Microbiology ENTIRE VAGINA / Unknown Collection / Unknown 06/24/2021 5:04 AM PECAN HULLER 06/24/2021 5:28 AM PECAN HULLER Narrative [facility] - 06/24/2021 6:03 PM PECAN HULLER Results based on detection/no detection of ribosomal RNA by amplified method. us Agustín Ferrell MD LAB - MICROBIOLOGY ORD ERABLES Final Result [facility] [address] [place] [address], [facility] [phone] from Last 3 Months or Most Recently Relevant to Health Maintenance Insurance [facility] Advance Directives * Full Code (Latest Code Status on File) Date Activated Date Inactivated Comments 07/19/2021 9:16 AM 07/22/2021 4:49 PM * Full Code Date Activated Date Inactivated Comments 06/24/2021 11:40 PM 06/26/2021 7:54 PM * Full Code Date Activated Date Inactivated Comments 06/24/2021 6:13 AM 06/24/2021 4:46 PM * Full Code Date Activated Date Inactivated Comments 06/24/2021 3:55 AM 06/24/2021 6:13 AM * Full Code Date Activated Date Inactivated Comments 05/31/2019 4:53 PM 05/31/2019 10:42 PM Care Teams Truck Trailer Final Inspector Relationship Specialty Start Date End Date Shahnaz Robbins MD [address] [place] [address] 1 [place] [address] PCP - General Family Medicine 12/09/18
--- NOTE | 2025-01-22 19:25 | ED.PREGNANCY ---
HPI - General Chief complaint: Vaginal Bleeding Stated complaint: vag bleed Time Seen by Provider: 01/22/25 18:51 History of Present Illness HPI Narrative: Patient is a 24-year-old female who presents to the ER with vaginal bleeding and nausea during . She reports she is approximately 8 weeks and 5 days . Patient endorses a history of a known subchorionic hemorrhage. She reports this is her 3rd with 2 live births. Patient reports earlier today she was sitting on the toilet and felt as though she was going to pass out so her aunt came and helped her lay down on the floor. Her aunt called EMS at that time. Patient reports her OBGYN is Dr. Mcgee. She reports he is aware of her subchorionic hemorrhage. Patient denies any other pertinent medical history. She reports she was at [facility] earlier today where they did blood work and an ultrasound but does not have records with her. Patient denies back pain, recent fevers, or abnormal vaginal discharge. Related Data Allergies Allergy/AdvReac Type Severity Reaction Status Date / Time Penicillins Allergy Mild NAUSEA/VOMI Verified 01/22/25 18:00 TING Review of Systems Review of Systems: All systems reviewed & are unremarkable except as noted in HPI and below Exam Narrative: GENERAL: Well appearing, well-nourished, non-toxic, in no acute distress. HEAD: Normocephalic, atraumatic. NECK: Supple. No adenopathy, no masses. RESPIRATORY: Airway patent, respirations nonlabored. Clear to auscultation bilaterally, no rales, rhonchi, wheezing. CARDIOVASCULAR: Regular rate and rhythm without murmurs, rubs, or gallops. Peripheral pulses 2+ and equal bilaterally. ABDOMINAL: Soft, lower quadrant tenderness, nondistended, no hepatosplenomegaly. Normoactive BS. MUSCULOSKELETAL: Moves all extremities. Strength/ROM intact without gross deformities. SKIN: Warm, dry, normal color. No rashes. NEURO: A&O X3. Speech clear. Cranial nerves II-XII intact. No ataxic movements. PSYCHIATRIC: Appropriate mood and affect. Normal interaction. : Moderate amount of dark, thick blood pooling in vaginal canal and coming from pt's cervix Course Vital Signs Vital signs: Vital Signs Temperature 36.4 C 01/22/25 18:01 Pulse Rate 84 01/22/25 18:01 Respiratory Rate 16 01/22/25 18:01 Blood Pressure 95/50 L 01/22/25 18:01 Pulse Oximetry 100 01/22/25 18:01 Temperature 36.4 C 01/22/25 18:01 Pulse Rate 78 01/22/25 22:01 Respiratory Rate 17 01/22/25 22:01 Blood Pressure 105/69 01/22/25 22:01 Pulse Oximetry 100 01/22/25 22:01 MDM - OB/Uterine Contractions MDM Narrative Medical decision making narrative: Patient is a 24-year-old female who presents to the ER with vaginal bleeding and nausea during . She reports she is approximately 8 weeks and 5 days . Patient endorses a history of a known subchorionic hemorrhage. She reports this is her 3rd with 2 live births. Patient reports earlier today she was sitting on the toilet and felt as though she was going to pass out so her aunt came and helped her lay down on the floor. Her aunt called EMS at that time. Patient reports her OBGYN is Dr. Mcgee. She reports he is aware of her subchorionic hemorrhage. Patient denies any other pertinent medical history. She reports she was at the [facility] earlier today where they did blood work and an ultrasound but does not have records with her. Patient denies back pain, recent fevers, or abnormal vaginal discharge. Labs Ordered: CBC, CMP, beta hCG, Trichomonas, GC chlamydia, INR, PTT, Rh immunoglobulin, UA Imaging Ordered: ultrasound transvaginal Medications Ordered: 1 L normal saline IV bolus Results: Pt's ultrasound indicates The uterus measures 10.9 x 7 x 9.1 cm. There is an intrauterine gestational sac, with pole identified. The crown rump length measures 1.98 cm, which correlates with a estimated gestational age of 8 weeks 4 days. heart tones are identified measuring 181 bpm. There is a large subchorionic hemorrhage. Ovaries within normal limits. Diagnosis: Large subchorionic hemorrhage, urinary tract infection Consults: OBGYN (Dr. Mcgee) 2100-spoke with patient's OBGYN who advised patient come into his office tomorrow morning at 9:00 a.m. for further evaluation. Patient Education/Shared MDM: Results of lab work and imaging shared with patient. She will be treated for urinary tract infection. Patient strongly advised to maintain hydration status upon discharge and follow-up with her OBGYN tomorrow morning. She will be discharged home with a prescription for Keflex. Strict return precautions provided. Patient verbalized understanding and is in agreement with plan. Vital signs stable at time of discharge. All questions answered. Differential Diagnosis Differential diagnosis: Likely other (Subchorionic hemorrhage, urinary tract infection, anemia, threatened miscarriage) Lab Data Attestation: I reviewed the patient's lab results. 01/22/25 20:13 01/22/25 20:13 Labs: Lab Results 01/22/25 01/22/25 Range/Units 20:08 20:13 WBC 8.9 (4.5-10.0) K/mm3 RBC 3.94 L (4.2-5.4) M/mm3 Hgb 12.4 (12.0-15.0) g/dL Hct 35.9 L (37.0-47.0) % MCV 91.1 (80-100) fl MCH 31.5 (26-34) pg MCHC 34.5 (32-36) g/dl RDW 11.9 (11.5-14.5) % Plt Count 208 (150-375) k/mm3 MPV 8.7 (7.4-10.4) fl Immature Gran % (Auto) 0.3 (0-0.5) % Neut % (Auto) 78.8 H (45.5-73.1) % Lymph % (Auto) 14.5 L (18.3-44.2) % [place] % (Auto) 6.0 (2.6-8.5) % Eos % (Auto) 0.1 (0-4.4) % Baso % (Auto) 0.3 (0.2-1.2) % Lymph # (Auto) 1.29 (0.9-3.2) K/mm3 [place] # (Auto) 0.5 (0.1-0.6) K/mm3 Eos # (Auto) 0.0 (0-0.3) K/mm3 Baso # (Auto) 0.0 (0.0-0.1) K/mm3 Abs Immat Gran (auto) 0.03 (0.00-0.031) K/mm3 Absolute Neuts (auto) 7.0 H (1.3-6.7) K/mm3 Absolute Nucleated RBC 0.000 (0.0-0.012) K/mm3 Nucleated RBC % 0.0 (0.0-0.2) % PT 13.8 (11.1-14.7) Seconds INR 1.0 APTT 29.3 (22.3-36.8) Seconds Sodium 135 L (137-145) mmol/L Potassium 3.5 (3.4-5.0) mmol/L Chloride 102 (98-107) mmol/L Carbon Dioxide 26 (22-30) mmol/L Anion Gap 7 (4-12) mmol/L BUN 9 (7-17) mg/dL Creatinine 0.55 L (0.7-1.0) mg/dL Estim Creat Clear Calc 116 ml/min Estimated GFR > 60 (59 - ) Glucose 95 (65-110) mg/dL Calcium 8.6 (8.4-10.2) mg/dL Total Bilirubin 0.5 (0.2-1.3) mg/dL AST 24 (14-36) U/L ALT 14 (6-35) U/L Alkaline Phosphatase 43 (38-126) U/L Total Protein 7.0 (6.3-8.2) g/dL Albumin 4.3 (3.5-5.1) g/dL Beta HCG, Quant 46048.00 mIU/ML Urine Color Yellow (Yellow) Urine Appearance Turbid H (Clear) Urine pH 8.5 (5.0-9.0) Ur Specific Combes 1.025 (1.001-1.035) Urine Protein 1+ H (Negative) mg/dL Urine Glucose (UA) Negative (Negative) mg/dL Urine Ketones Negative (Negative) mg/dL Ur Blood (Man) 3+ H (Negative) Urine Nitrate Negative (Negative) Urine Bilirubin Negative (Negative) Urine Urobilinogen 1.0 (<2.0) mg/dL Add Ur Microanalysis Reviewed Leukocyte Esterase Rfl Negative (Negative) ZEINAB/UL Urine RBC 21-50 H (0-2) /hpf Urine WBC 6-10 H (0-3) /hpf Ur Squamous Epith Cells Occasional (Few) /hpf Urine Bacteria None seen /hpf Urine Casts 3-5 C. trachomatis (PCR) Not detected (NOT DETECTE) N. gonorrhoeae (PCR) Not detected (NOT DETECTE) T. vaginalis (PCR) Not detected (NOT DETECTE) Blood Type O Positive Antibody Screen Negative Screen TNP Baby's Blood Type Not Reportable Baby's CADEN Not Reportable Doses of RhIg Required 0 Imaging Data Attestation: I personally reviewed and interpreted this imaging study as follows: Radiologist's impression: Impressions Ultrasound 01/22/25 20:23 IMPRESSION: 1. SL IUP with an EGA of 8 weeks, 4 days (EDC by current ultrasound of 08/30/2025). 2: Large subchorionic hemorrhage. Discharge Plan Discharge Clinical Impression: Threatened , Subchorionic hematoma, Vaginal bleeding, Urinary tract infection affecting Patient Disposition: Home Condition: Guarded Prognosis Instructions: Antibiotic Form, Subchorionic Hemorrhage (ED) Additional Instructions: Please return to the ER with any worsening symptoms. Follow-up with your OBGYN tomorrow morning at 9:00 a.m. Please complete your full dose of antibiotics. Patient Language: Telugu Prescriptions: New cephalexin 500 mg capsule 500 mg PO Q8H 7 Days Qty: 21 0RF Follow-up/Referrals: Hollis Mcgee MD [Physician, CLOTH MERCERIZER OPERATOR] Referral Note: OBGYN PHYSICIAN NOT ON STAFF,NONSTAFF [Primary Care Provider] Time of Disposition: 22:35
--- OUTSIDE RECORDS SUMMARY | 2025-01-22 19:34 | XMS_ITS | Clinical Summary ---
Author Organization [facility] [address] Address [address] [place] [address] Phone Care Team Providers Care Manager Home Healthcare Name Role Phone Gurjit Anderson MD Primary Care Provider Juan Dooley MD Unavailable Allergies No known active allergies Medications 28 mg iron- 800 mcg tablet TK 1 T PO ONCE D 8 10/24/2018 Active ferrous gluconate 324 mg (37.5 mg of elemental iron) tablet Take 324 mg by mouth daily Active Active Problems No known active problems Encounters Date Type Department Care Team Description 01/01/2025 9:19 PM CDT - 01/01/2025 9:49 PM CDT Emergency [facility] Emergency Department [address] [place] [id number] Threatened miscarriage in early (Primary Dx) Discharge [...] on file Legal Sex 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 Gender Identity Not on file Sexual Orientation Not on file Obstetrics History Para Term AB IAB SAB Ectopic Multiple Livin g Live Births 2 1 1 1 1 Date Outcome GA Total Labor Labor//3rd Weight Sex Type Anes PTL Steffi A1 A5 Name Clin 020 Term 39w 1d Vag-S pont Epidur al N Livin g Juan Rome MD Complications:None Delivery Location:This [facility] ity Last Filed Vital Signs Vital Sign [...] 170.2 cm (5' 7) 05/07/2019 4:45 PM EDUCATIONAL TECHNOLOGY SPECIALIST Body Mass Index - - Plan of [...] current clinical standards) Comment:Testing performed by : [facility], [address], [place]., [address] Organism (CLINICALLY INSIGNIFICANT GROWTH LARRY CONDE (KIM) Urine, bladder 01/01/2025 8: 55 PM CDT 01/02/2025 12:30 AM CDT Narrative [facility] (KIM) - 01/03/2025 6:17 AM CDT Indications for Culture:-> patient Testing performed by [facility] ([phone]) us Heaven [facility] MICROBIOLOGY - GENERA L ORDERABLES Final Result [facility] (KIM) [address] [facility] Department [place] [address] * (ABNORMAL) Urinalysis reflex to microscopic and [...] tendency for uric acid stone formation. Source: [facility] Current Interpretive Data was last revised on [...] GENERAL ORDERABLES Final Result Performing Organization Address [facility] Co de Phone Number LARRY CONDE (KIM) 1 [facility] [place] [address] * (ABNORMAL) Urinalysis, microscopic only (01/01/2025 8:22 PM CDT) WBC, ur 0-5 0 - 5 /HPF RBC, ur 0-2 0 - 2 /HPF LARRY CONDE (FAYETTE) Epithelial cells, squamous, ur 1-5 0 - 5 /HPF LARRY CNODE (FAYETTE) Bacteria, ur 3+(A) LARRY [facility] (FAYETTE) Culture Reflex Comment Reflex conditions for urine culture (WBC >10) not met. LARRY CONED (FAYETTE) Urine 01/01/2025 8:22 PM CDT 01/01/2025 8:51 PM CDT Agustín [facility] URINE ORDERA BLES Final Result Performing Organization Address [facility] de Phone Number LARRY CONDE (FAYETTE) 1 [facility] [place] [address] * US Ob Under 14 Weeks (01/01/2025 [...] Not identified Mean sac diameter: 0.9 cm [place]-rump length: Not applicable heart rate: Not applicable [...] Denny Choe M.D. KR: KR Report ID: [id number] Reading Location: [id number] Procedure Note Denny Choe MD - 01/01/2025 [...] Not identified Mean sac diameter: 0.9 cm [place]-rump length: Not applicable heart rate: Not applicable [...] Denny Choe M.D. KR: KR Report ID: [id number] Reading Location: [id number] us Agustín [facility] IMG OB US PROCED [...] BLOOD ORDERA BLES Final Result LARRY CONDE (FAYETTE) [address] [facility] Department [place] [address] * Differential, auto (01/01/2025 3:49 PM CDT) Neutrophil abs 4.62 1.50 - 6.50 K/cumm Imm gran abs 0.02 0.00 - 0.10 K/cumm [facility] (FAYETTE) Lymphocyte abs 1.15 0.80 - 3.30 K/cumm [facility] ([place]) Monocyte abs 0.31 0.20 - 0.80 K/cumm [facility] ([place]) Eosinophil abs 0.01 0.00 - 0.50 K/cumm [facility] ([place]) Basophil abs 0.04 0.00 - 0.10 K/cumm [facility] ([place]) Neutrophil pct 75.1 % [facility] ([place]) Comment: Interpretive Data Percent cell count reference ranges are not reported, since discordance with absolute values may lead to misinterpretation of CBC data. Current Interpretive Data was last revised on 2017. Imm gran pct 0.3 % [facility] ([place]) Comment: Interpretive Data Percent cell count reference ranges are not reported, since discordance with absolute values may lead to misinterpretation of CBC data. Current Interpretive Data was last revised on 2017. Lymphocyte pct 18.7 % [facility] ([place]) Comment: Interpretive Data Percent cell count reference ranges are not reported, since discordance with absolute values may lead to misinterpretation of CBC data. Current Interpretive Data was last revised on 2017. Monocyte pct 5.0 % [facility] ([place]) Comment: Interpretive Data Percent cell count reference ranges are not reported, since discordance with absolute values may lead to misinterpretation of CBC data. Current Interpretive Data was last revised on 2017. Eosinophil pct 0.2 % [facility] ([place]) Comment: Interpretive Data Percent cell count reference [...] BLES Final Result [facility] (KIM) 1 [facility] [place] [address] * CBC with auto differential (01/01/2025 3:49 [...] BLES Final Result LARRY CONDE (KIM) 1 [facility] [place] [address] * ABO/Rh (01/01/2025 3:49 PM CDT) ABO/Rh O Positive Blood 01/01/2025 3:49 PM CDT 01/01/2025 4:10 PM CDT Agustín [facility] BLOOD BANK T EST ORDERABLES Final Result Performing Organization Address [facility] Co de Phone Number LARRY CONDE (FAYETTE) 1 [facility] [place] [address] * (ABNORMAL) hCG, blood, quantitative (01/01/2025 3:49 PM CDT) Pathologist [facility] hCG, quant 4,831.0(H ) 0.0 - 5.0 IUnits/L [facility] (KIM) Comment: Interpretive Data Male: < [...] ORDERA BLES Final Result Performing Organization Address City/[facility]/ZIP Co de Phone Number LARRY CONDE (KIM) 1 [facility] [email or web address] [address] * Comprehensive metabolic panel (01/01/2025 3:49 PM [...] BLES Final Result [facility] (KIM) [address] [facility] [place] [address] from Last 3 Months Insurance [facility] Advance Directives For more information, please contact: [phone] * Full Code (Latest Code Status on File) Date Activated Date Inactivated Comments 06/08/2019 3:47 PM 06/10/2019 5:13 PM * Full Code Date Activated Date Inactivated Comments 06/07/2019 6:09 PM 06/08/2019 3:47 PM Full CPR in c ase of cardiopulmonary arrest Care Teams Manager Home Healthcare Relationship Specialty Start Date End Date Gurjit Anderson MD [address] [place] [address] PCP - General Family Medicine 08/21/23 Juan Dooley MD [address] [place] [address] Flight Crew Scheduler Obstetrics and Gynecology 08/21/23
--- OUTSIDE RECORDS SUMMARY | 2025-01-22 19:34 | XMS_ITS | Clinical Summary ---
Author Organization [facility] [email or web address] Address [address] [place] [address] Care Team Providers Care Control Manager Name Role Phone Shahnaz Robbins MD Primary Care Provider [phone] Source Comments [facility] [email or web address],non-owned Affiliates and Associated Physician Practices is amultiple site organization consisting of ambulatory clinics and hospital sitesin [place], [place], [place] and [place]. This disclosure is being madepursuant to the Care Everywhere program and may not contain all information available regarding this patient. Last updated 18.[facility] [email or web address] Allergies Active Allergy Reactions Criticality Noted Date [...] migh t be different from the original. [employer] form completed. Diapers given. 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 Has a history of iron deficiency anemia. Not currently taking iron due to nausea from . Assessment & Plan (06/05/2019 1:16 PM DIRECTOR FUNDRAISING): Urged continued compliance with ferrous sulfate supplementation twice daily, optimally with orange juice. Discussed she may also need supplementation . She completed a total of 600mg of Venofer infusions at [facility]; she declined my offer to complete one more prior to delivery this Monday. Again, reviewed risk for blood transfusion with delivery. Assessment & Plan (05/29/2019 2:57 PM DIRECTOR FUNDRAISING): 03/06/19: H/H/P: 10.; inconsistent with ferrous sulfate supplementation 05/09/19: H/H/P: 8.9/.9, MCV: 81.3, MCHC: 31.9 Iron: 21 (L) UIBC: 422 (H) TIBC: 443 (WNL, range: 120-480) Saturation %: 5%, (L) 05/28/19: H/H/P: Plan: Urged continued compliance with ferrous sulfate supplementation twice daily, optimally with orange juice. Has begun Venofer infusions at [facility], received first one, 200mg. Dr. Rae prefers [...] delivery. Assessment & Plan (05/15/2019 11:38 AM DIRECTOR FUNDRAISING): 03/06/19: H/H/P: 10.; inconsistent with ferrous sulfate supplementation 05/09/19: H/H/P: 8.9/27.9/212, MCV: 81.3, MCHC: 31.9 Iron: 21 (L) UIBC: 422 (H) TIBC: 443 (WNL, range: 120-480) Saturation %: 5%, (L) Plan: Urged compliance with ferrous sulfate supplementation twice daily. Reviewed dietary products to avoid with iron supplement. Venofer Iron infusions ordered and faxed to the infusion center at [facility]. Patient calculated to receive approximately 400mg two times, reviewed with Dr. Rae. Reviewed importance of compliance with these infusions, and timing for stores to be improved. Reviewed if she has spontaneous labor prior to infusions or shortly after, remains at risk for blood transfusion with delivery. Assessment & Plan (04/10/2019 11:44 AM DIRECTOR FUNDRAISING): 03/06: H/H/P: 10.; compliant with ferrous sulfate supplementation Plan: Inconsistent with ferrous sulfate supplementation. Sent with requisition to check CBC, iron studies, instructed to do so in 2 weeks. Encouraged to take iron with Vitamin C again. Reviewed possibility of iron infusions if counts are worsening on next assessment. Assessment & Plan (03/20/2019 10:52 AM DIRECTOR FUNDRAISING): 03/06: H/H/P: 10.; compliant with ferrous sulfate [...] speckled Assessment & Plan (03/17/2021 3:30 PM DIRECTOR FUNDRAISING): Has not yet seen a Lean Specialist. Was diagnosed with lupus by PCP. Recommendations: 1. Requesting records to confirm diagnosis of lupus 2. Baseline C3, C4, SSA/SSB 3. Please forward a copy of the 24 hr urine results performed 4. Aspirin for preeclampsia risk reduction 5. Will determine testing depending on final diagnosis Assessment & Plan (05/29/2019 2:49 PM DIRECTOR FUNDRAISING): had CLIF tested due to her mother having lupus CLIF: 1:80-- dense, finely speckled APLAS and lupus screen from 03/06/19: Cardiolipin AB IgM: <12 and IgG: <14 Beta 2 cardiolipin AB IgM, IgG, IgA: all <9 Double stranded DNA: <1 SS-A and SS-B: negative Again, Consider rheumatology referral after delivery or onset of new/worsening symptomatolgy. Assessment & Plan (05/15/2019 11:44 AM DIRECTOR FUNDRAISING): had CLIF tested due to her mother having lupus CLIF: 1:80-- dense, finely speckled APLAS and lupus screen from 03/06/19: Cardiolipin AB IgM: <12 and IgG: <14 Beta 2 cardiolipin AB IgM, IgG, IgA: all <9 Double stranded DNA: <1 SS-A and SS-B: negative Again, Consider rheumatology referral after delivery or onset of new/worsening symptomatolgy. Assessment & Plan (03/20/2019 10:59 AM DIRECTOR FUNDRAISING): CLIF: 1: 80, dense, finely speckled APLAS [...] Lupus Assessment & Plan (03/06/2019 10:59 AM DIRECTOR FUNDRAISING): had CLIF tested due to her mother [...] 36w2d Assessment & Plan (03/17/2021 5:40 PM DIRECTOR FUNDRAISING): We discussed the diagnosis and the recommendation [...] understanding. Assessment & Plan (05/15/2019 11:13 AM DIRECTOR FUNDRAISING): Resulted from biting of nails; likely needs [...] negative Assessment & Plan (05/29/2019 2:59 PM DIRECTOR FUNDRAISING): Preliminary ultrasound: Improved growth: EFW: 22%, AC [...] today. Assessment & Plan (05/15/2019 11:49 AM DIRECTOR FUNDRAISING): Preliminary ultrasound: EFW: 10%, AC 2%, umbilical [...] today. Assessment & Plan (04/10/2019 12:06 PM DIRECTOR FUNDRAISING): Preliminary ultrasound: EFW: 10%, AC 6%, umbilical [...] lbs Assessment & Plan (03/20/2019 3:52 PM DIRECTOR FUNDRAISING): 03/20 preliminary ultrasound: EFW: 7%, AC 5%, [...] intake Assessment & Plan (03/06/2019 11:16 AM DIRECTOR FUNDRAISING): Datinw5d ultrasound, confirmed with report, uncertain LMP [...] 03/06/2019 03/16/2021 Overview (03/06/2019): Treated inpatient at [facility] Not currently taking prophylaxis as recommended Intermittent low back pain present, without fever, N/V, dysuria, urgency Assessment & Plan (05/29/2019 3:01 PM DIRECTOR FUNDRAISING): Treated inpatient at [facility]. Never took prophylaxis as recommended. Asymptomatic today. Treated with IV ceftriaxone yesterday at ED, with likely contaminated U/A Urine culture is pending; preliminary culture shows no growth. Oral antibiotics not indicated, patient encouraged to follow up with hospital for final urine culture results. Assessment & Plan (05/15/2019 11:29 AM DIRECTOR FUNDRAISING): Treated inpatient at [facility]. Never took prophylaxis as recommended. Asymptomatic today. Assessment & Plan (04/10/2019 12:01 PM DIRECTOR FUNDRAISING): Treated inpatient, and had subsequent UTI treated in early March. Plan: Patient continues to be asymptomatic; she is non-compliant with antibiotic prophylaxis, and is honest stating she likely will not be. Strict precautions given for any symptoms to be seen right away by primary Courtesy Driver or OB triage. Reviewed that during symptoms are not as obvious. She verbalized understanding. Assessment & Plan (03/27/2019 1:44 PM DIRECTOR FUNDRAISING): Urine cx negative after recurrent infection, Macrobid prophylaxis sent to pharmacy 03/27 Assessment & Plan (03/20/2019 10:51 AM DIRECTOR FUNDRAISING): Treated for UTI with primary OB, patient states she finished antibiotics at least 1 week ago. Asymptomatic today. Plan: Sent with repeat urine culture orders today. Begin Macrobid prophylaxis immediately following negative urine culture, 100mg daily. Assessment & Plan (03/06/2019 11:00 AM DIRECTOR FUNDRAISING): Treated inpatient at [facility] Not currently taking prophylaxis as recommended Intermittent [...] of Binge Drinking Not on file 11/29 [place] Depression Scale Answer Date Recorded RETIRED: Total [...] 170.2 cm (5' 7) 06/24/2021 9:59 PM DIRECTOR FUNDRAISING Body Mass Index 20.67 06/24/2021 9:59 PM DIRECTOR FUNDRAISING Plan of Treatment Health Maintenance Due Date [...] P24 AG PANEL Routine 07/01/2021 12:43 PM DIRECTOR FUNDRAISING Antiphospholipid antibody positive Gypsy's thyroiditis CHLAMYDIA + GC AMPLIFIED PROBE Routine 06/24/2021 5:04 AM DIRECTOR FUNDRAISING Supervision of high-risk of young multigravida from Last 3 Months or Most Recently Relevant to Health Maintenance Results * HIV-1 HIV-2 ANTIBODY + HIV P24 AG PANEL (07/01/2021 12:43 PM DIRECTOR FUNDRAISING) Pathologist [facility] HIV1/2 Ab + P24 Ag Non Reactive Non Reactive 07/01/2021 1:36 PM DIRECTOR FUNDRAISING [facility] Blood BLOOD SPECIMEN / Unknown Venipuncture / Unknown 07/01/2021 12:43 PM DIRECTOR FUNDRAISING 07/01/2021 12:52 PM DIRECTOR FUNDRAISING Narrative [facility] - 07/01/2021 1:36 PM DIRECTOR FUNDRAISING No Laboratory evidence of HIV infection. us Humera Licea MD LAB - CHEMISTRY ORDERA BLES Final Result [facility] [address] [place] [address] * CHLAMYDIA + GC AMPLIFIED PROBE (STL) (06/24/2021 5:04 AM DIRECTOR FUNDRAISING) Chlamydia Amplified Probe Negative Negative 06/24/2021 6:03 PM DIRECTOR FUNDRAISING [facility] GC Amplified Probe Negative Negative 06/24/2021 6:03 PM DIRECTOR FUNDRAISING [facility] Microbiology ENTIRE VAGINA / Unknown Collection / Unknown 06/24/2021 5:04 AM DIRECTOR FUNDRAISING 06/24/2021 5:28 AM DIRECTOR FUNDRAISING Narrative [facility] - 06/24/2021 6:03 PM DIRECTOR FUNDRAISING Results based on detection/no detection of ribosomal RNA by amplified method. us Agustín Ferrell MD LAB - MICROBIOLOGY ORD ERABLES Final Result [facility] [address] [place] [address], [facility] [phone] from Last 3 Months or Most Recently Relevant to Health Maintenance Insurance [facility] Advance Directives * Full Code (Latest Code [...] 4:53 PM 05/31/2019 10:42 PM Care Teams Control Manager Relationship Specialty Start Date End Date Shahnaz Robbins MD [address] [place] [address] [address] [place] [address] PCP - General Family Medicine 12/09/18
--- OUTSIDE RECORDS SUMMARY | 2025-01-22 19:34 | XMS_ITS | Encounter Summary ---
Author Organization [facility] Facility Care Team Providers Care Rn Peritoneal Dialysis Name Role Phone Gurjit Anderson MD Primary Care Provider [phone] Juan Dooley MD Unavailable [phone] Encounter Details Date Type Department Care [...] on file Legal Sex Female 7:16 PM MATERIALS BUYER Gender Identity Not on file Sexual Orientation Not on file documented as of this encounter Plan of Treatment Not on file documented as of this encounter Visit Diagnoses Not on filedocumented in this encounter Care Teams Rn Peritoneal Dialysis Relationship Specialty Start Date End Date Gurjit Anderson MD [address] [place] [id number] PCP - General Family Medicine 08/21/23 Juan Dooley MD [address] [facility] [place] [id number] Kinesiotherapist Obstetrics and Gynecology 08/21/23 documented as of this encounter
--- OUTSIDE RECORDS SUMMARY | 2025-01-22 19:34 | XMS_ITS | Clinical Summary ---
Author Organization [facility] Address [address] [address] [place] [address] Phone Care Team Providers Care Dean For Student Affairs Name Role Phone Shahnaz Robbins MD Primary [...] age to complete this topic Insurance [place]ID [place] Care Teams Dean For Student Affairs Relationship Specialty Start Date End Date Shahnaz Robbins MD PCP - General Family Medicine 10/22/20
[2025-01-22] MEDS: SODIUM CHLORIDE 0.9% IV 1,000 ML 999 ML IV CONT (20:07)
[2025-01-22 20:36] LABS: Hematocrit 35.9 % (37.0-47.0); Hemoglobin 12.4 g/dL (12.0-15.0); Immature Granulocyte Percent A 0.3 % (0-0.5); Lymphocytes Absolute Auto 1.29 K/mm3 (0.9-3.2); Mean Corpuscular HGB Conc 34.5 g/dl (32-36); Mean Corpuscular Hemoglobin 31.5 pg (26-34); Mean Corpuscular Volume 91.1 fl (80-100); Nucleated Red Blood Cells Absolute Auto 0.000 K/mm3 (0.0-0.012); Nucleated Red Blood Cells Perc 0.0 % (0.0-0.2); Platelet Count Result 208 k/mm3 (150-375); Red Blood Count 3.94 M/mm3 (4.2-5.4); White Blood Count 8.9 K/mm3 (4.5-10.0)
[2025-01-22 20:49] LABS: Add Urine Microscopic? YES; Appearance Urine Turbid (Clear); Glucose Urine UA Negative (Negative); Leukocyte Esterase Ur Negative LEU/UL (Negative); Need Manual Microscopic Reviewed; Nitrate Urine Negative (Negative); Specific Grav Ur 1.025 (1.001-1.035)
[2025-01-22 20:49] LABS: INR 1.0; Prothrombin Time 13.8 Seconds (11.1-14.7)
[2025-01-22 20:50] LABS: Partial Thromboplastin Time 29.3 Seconds (22.3-36.8)
[2025-01-22 20:52] LABS: Alanine Aminotransferase 14 U/L (6-35); Albumin Level 4.3 g/dL (3.5-5.1); Alkaline Phosphatase 43 U/L (38-126); Anion Gap 7 mmol/L (4-12); Aspartate Amino Transferase 24 U/L (14-36); Bilirubin,Total 0.5 mg/dL (0.2-1.3); Blood Urea Nitrogen 9 mg/dL (7-17); Carbon Dioxide 26 mmol/L (22-30); Chloride 102 mmol/L (98-107); Estimated CRCL calculation 116 ml/min; Estimated Glomerular Filt Rate > 60; Sodium 135 mmol/L (137-145); Total Protein 7.0 g/dL (6.3-8.2)
[2025-01-22 21:04] LABS: Calcium 8.6 mg/dL (8.4-10.2); Glucose 95 mg/dL (65-110); Potassium 3.5 mmol/L (3.4-5.0)
[2025-01-22 21:37] LABS: Beta HCG Quantitative 97777.00 mIU/ML
[2025-01-22 21:45] LABS: Trichomonas Vag PCR NOT DETECTED (NOT DETECTE)
[2025-01-22] MEDS: CEPHALEXIN 500 MG CAPSULE PO (22:47)
== END 2025-01-22 22:53 | disposition home or self-care (01) ==
PROVIDERS: Emergency Provider Registered Nurse
DX: O20.8 Other hemorrhage in early pregnancy (principal); O23.41 Unspecified infection of urinary tract in pregnancy, first trimester; N39.0 Urinary tract infection, site not specified; Z3A.08 8 weeks gestation of pregnancy
CPT/HCPCS: 36415; 76801; 80053; 81001; 84702; 85025; 85461; 85610; 85730; 86850; 86900; 86901; 87086; 87186; 87491; 87591; 87661; 96360; 99284; A9270; J7030

== ENCOUNTER 2025-03-22 05:22 | Observation (INO) | payer OTHER, SELFPAY ==
[2025-03-22] VITALS (30 sets, daily range): BP systolic 72–118; BP diastolic 17–75; PULSE 51–115; RESP 20; TEMP 36.4; O2SAT 90–100; BMI 18.0
--- NOTE | ~2025-03-22 | US_ITS ---
EXAMINATION: US OB limited DATE: 03/22/2025 07:48 INDICATION: Left flank pain. TECHNIQUE: Real-time ultrasound of the pelvis was performed. COMPARISON: None. FINDINGS: There is a single living fetus in transverse lie. The placenta is posterior and fundal. heart rate is 161 beats per minute (bpm). The amniotic fluid volume is subjectively normal. The following biometric data were obtained: head circumference (HC): 14.2 cm; abdominal circumference (AC): 11.9 cm; femur length (FL): 2.6 cm. These measurements are concordant. Estimated weight is 204 g +/- 31 g, which correlates with the 85th percentile when 08/30/25 is used as estimated date of delivery. As single measurements, these parameters are each equal to the following estimated gestational ages: HC: 17 weeks 3 days. AC: 17 weeks 4 days. FL: 18 weeks 0 days. estimated gestational age based solely on measurements from this exam is 17 weeks 5 days +/- 1 weeks 2 days. IMPRESSION: 1. Single living fetus in transverse lie. 2. Estimated weight is 204 g +/- 31 g, which correlates with the 85th percentile when 08/30/25 is used as estimated date of delivery. This date was set by ultrasound on 01/22/2025. Reviewed, dictated and finalized at location E. UCT BUILDER IMPRESSION: 1. Single living fetus in transverse lie. 2. Estimated weight is 204 g +/- 31 g, which correlates with the 85th pe rcentile when 08/30/25 is used as estimated date of delivery. This date was set b y ultrasound on 01/22/2025.
[2025-03-22] MEDS: LACTATED RINGERS 1,000 ML 125 ML IV CONT (05:49)
--- NOTE | 2025-03-22 06:05 | OBADM ---
This patient, Arianna Meyers, admitted to the OB room OB Post 115 for observation. Patient/family oriented to hospital policies and general routines including ID bracelet, bed and alarms, visiting hours, pain management, procedures, bathroom and other care routines, personal items, smoking policy, room service/diet, and visiting hours. Patient/Family are encouraged to report perceived risks to care and to ask questions if they do not understand what they are told or what they should do.
--- NOTE | 2025-03-22 06:06 | OBADM ---
This patient, Arianna Meyers, admitted to the OB room OB Post 115 for observation. PT arrived with ambulance, transferred from [facility] in [facility] for 17 wks abdominal pain. She received 2 doses of fentanyl for pain. Upon arrival, she appears in lots of pain and requested pain meds. called Dr. Mcgee order received for Dilauded, zofran, Ultrasound, UA ordered. Patient/family oriented to hospital policies and general routines including ID bracelet, bed and alarms, visiting hours, pain management, procedures, bathroom and other care routines, personal items, smoking policy, room service/diet, and visiting hours. Patient/Family are encouraged to report perceived risks to care and to ask questions if they do not understand what they are told or what they should do.
[2025-03-22 07:09] LABS: Add Urine Microscopic? YES; Appearance Urine Cloudy (Clear); Glucose Urine UA Negative (Negative); Leukocyte Esterase Ur Negative LEU/UL (Negative); Need Manual Microscopic Reviewed; Nitrate Urine Negative (Negative); Non Pathogenic Casts 0-2; Specific Grav Ur 1.006 (1.001-1.035)
--- NOTE | 2025-03-22 10:17 | PC.NURSE ---
0941- Called Dr. Mcgee to report ultrasound results. Pt. is no longer in pain and states she feels better. Pt. is comfortable with and ready to go home at this time, but states she is scared that her pain will return. Orders received from Dr. Mcgee to have pt. follow up outpatient and get a CT scan.
--- NOTE | 2025-04-20 12:20 | PM.OBTRLD ---
OB - Triage/Final Diagnosis Visit Information Comments/Additional reasons for admission: I have assessed the risk for this patient, Arianna Meyers, and determined that she would benefit from observation care. Evaluation Laboratory results: Laboratory Tests 03/22/25 06:50 Urine Color Yellow Urine Appearance Cloudy H Urine pH 6.0 Ur Specific [place] 1.006 Urine Protein Negative Urine Glucose (UA) Negative Urine Ketones 1+ H Ur Blood (Man) 3+ H Urine Nitrate Negative Urine Bilirubin Negative Urine Urobilinogen 0.2 Add Ur Microanalysis Reviewed Leukocyte Esterase Rfl Negative Urine RBC 6-10 H Urine WBC 0-5 Ur Squamous Epith Cells None seen Urine Bacteria None seen Urine Casts 0-2 Final Diagnosis (1) Flank pain: Code(s): R10.A0 - Flank pain, unspecified side Status: Acute
== END 2025-03-22 10:00 | disposition home or self-care (01) ==
PROVIDERS: Admitting Provider Obstetrics & Gynecology; Visit Provider Obstetrics & Gynecology
DX: O26.892 Other specified pregnancy related conditions, second trimester (principal); R10.A2 Flank pain, left side; Z3A.17 17 weeks gestation of pregnancy
CPT/HCPCS: 76815; 81001; G0378; G0379; J7120